=== PATIENT | male | born 1935 | race Caucasian/White ===

== ENCOUNTER 2020-11-06 16:53 | Emergency (ER) | payer MEDICARE, SELFPAY ==
[2020-11-06] VITALS (10 sets, daily range): BP systolic 134–191; BP diastolic 62–99; PULSE 18–88; RESP 16–24; TEMP 36.6–37.1; O2SAT 97–99; BMI 25.8
--- NOTE | 2020-11-06 17:36 | CTR_ITS ---
PROCEDURE INFORMATION: Exam: CT Head Without Contrast Exam date and time: 11/06/2020 5:38 PM Age: 85 years old Clinical indication: Pain; Headache not specified; Additional info: Migraine TECHNIQUE: Imaging protocol: Computed tomography of the head without contrast. Radiation optimization: All CT scans at this facility use at least one of these dose optimization techniques: automated exposure control; mA and/or kV adjustment per patient size (includes targeted exams where dose is matched to clinical indication); or iterative reconstruction. COMPARISON: CT head wo con* [id number] 02/02/2015 1:49 AM RADIATION DOSE METRICS: Total DLP (mGy-cm): 870.45 FINDINGS: Brain: There is moderate cerebral atrophy. No hemorrhage. Unremarkable white matter. No mass effect. Cerebral ventricles: No ventriculomegaly. Bones/joints: Unremarkable. No acute fracture. Paranasal sinuses: Diffuse opacification of the left sphenoid sinus with heterogeneous inspissated mucus. Extensive opacities of the left posterior ethmoid air cells. The maxillary sinuses are clear. The frontal sinuses are clear. The right sphenoid sinus is clear. Mastoid air cells: Mastoid air cells are clear. Auditory system: Small rounded radiopaque object in the right external auditory canal. Correlate for hearing aid device or foreign body. Orbital cavity: Bilateral lens replacements. Orbits are symmetric and unremarkable. Vasculature: Scattered intracranial atherosclerosis. Soft tissues: Unremarkable. CT/CT head wo con* [id number] IMPRESSION: Negative for acute intracranial abnormality. Radiation Dose CTDIVOL = (mGy): DLP = 870.45 (mGy-cm)
--- NOTE | 2020-11-06 17:40 | W.ED.HA ---
HPI - Headache General: Chief Complaint: Headache Stated Complaint: severe headaches/loss of sight L eye Time Seen by Provider: 11/06/20 17:36 History of Present Illness: HPI Narrative: Patient is a 85-year-old male who comes to the ED with severe headache for 2 weeks. Patient says 2 weeks ago he went to the site specialist at [facility] performed an eye exam and ever since then he has had on and off headaches. He says each day he will develop a severe headache that starts just above behind the left eye and radiates to the left side of his head to the back of the head. He rates his headache a 10 out of 10. He is complaining of photosensitivity and sound also makes headache worse. Patient took a pain pill around 3 PM today and has not helped him. Denies any nausea or vomiting. Denies any history of headaches or migraines. He says he rarely ever gets headaches, so this is very unusual for him. Associated symptoms: Reports photophobia; Deny chest pain, fever(s), nausea, rash or vomiting Review of Systems Const: Denies: fever(s), chills or fatigue Eyes: Reports: photophobia; Denies: change in vision or eye discomfort ENMT: Denies: throat pain, odynophagia, nasal discharge or nasal congestion Card: Denies: chest pain, palpitations, edema, swelling of feet/ankles, dyspnea on exertion or orthopnea Resp: Denies: dyspnea, productive cough or non-productive cough GI: Denies: abdominal pain, nausea, vomiting, diarrhea, constipation or hematochezia : Denies: flank pain, difficulty urinating, dysuria or hematuria Musc: Denies: neck pain, back pain or extremity swelling Skin/Breast: Denies: rash or new lesions Neuro: Reports: headache(s); Denies: numbness in extremities or weakness in extremities PFSH ED PFSH: Medical History Benign essential HTN CAD (coronary artery disease) Diabetes Hyperlipidemia Hypertension Type 2 diabetes mellitus Surgical History Hx of CABG Previous back surgery Family History Other CAD (coronary artery disease) Diabetes Stroke Social History Smoking and tobacco status: former smoker Alcohol intake: former Physical Exam Const: COMMON NORMALS: patient oriented x3 and alert GENERAL APPEARANCE: cooperative and in distress (pt is uncomfortable and appears to be in pain due to headache) HENMT: COMMON NORMALS: normocephalic HEAD & SCALP: normocephalic MOUTH: Normal oral and palatal mucosa present THROAT: posterior oropharynx normal and uvula midline Eye: COMMON NORMALS: Equal, round and reactive pupils present and EOMs intact bilaterally PUPIL: Yes Equal, round and reactive pupils present DIRECT OPHTHALMOSCOPY: Yes photophobia Neck/C-Spine: COMMON NORMALS: supple GENERAL: Yes normal visual inspection Resp: COMMON NORMALS: normal respiratory effort, No retractions, No use of accessory muscles and clear to auscultation bilaterally AUSCULTATION: clear to auscultation bilaterally Cardio: COMMON NORMALS: regular rate, regular rhythm, S1 normal heart sound present, S2 normal heart sound present, No gallops present (Cardio), No clicks present (Cardio), No murmurs present (Cardio) and Peripheral pulses 2+ throughout RATE: regular rate RHYTHM: regular rhythm HEART SOUNDS: S1 normal heart sound present and S2 normal heart sound present PERIPHERAL PULSES: Peripheral pulses 2+ throughout GI: COMMON NORMALS: Normal to inspection, nondistended, normoactive bowel sounds present, Soft to palpation, non-tender and no masses PALPATION: Yes Soft to palpation : COMMON NORMALS: Yes no CVA tenderness BLADDER/KIDNEY EXAM: Yes no CVA tenderness Back/Pelvis: COMMON NORMALS: no CVA tenderness Extremity: COMMON NORMALS: normal to inspection and no pedal edema Neuro: COMMON NORMALS: patient oriented x3, CN's II-XII intact bilaterally, moves all extremities, no focal motor deficits and no sensory deficits noted SENSORIUM/ORIENTATION: Yes alert MOTOR EXAM: 5/5 motor strength present throughout Skin: GENERAL SKIN EXAM: dry skin Course ED course: Patient was given some IV morphine and that slightly improved headache. Patient was then given half milligram of Dilaudid and headache symptoms still did not improve. Reevaluation(s): Reevaluation #1: After patient received IV fluids, Toradol, Decadron and Benadryl his migraine improved greatly. Patient says he is finally got some relief and is ready to go home and rest. He rates his migraine a 3 out of 10. Time: 21:54 Vital Signs: Vital signs: Vital Signs Temperature 98.7 F 11/06/20 22:25 Pulse Rate 18 L 11/06/20 22:25 Respiratory Rate 18 11/06/20 22:25 Blood Pressure 134/62 11/06/20 22:25 Pulse Oximetry 97 11/06/20 22:25 MDM - Headache MDM Narrative: Medical decision making narrative: Patient is an 85-year-old male comes to the ED with a headache. He has been having symptoms of an on and off severe headache for the past 2 weeks. 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 He has no history of migraines. He is complaining of photophobia and loud noises make headache worse as well. Patient is a nontoxic 85-year-old male that appears to be in pain due to headache neuro exam was normal. CBC and CMP were unremarkable. CT of head showed no acute findings. CTA of head showed no acute findings as well. Patient was given IV morphine first and headache only slightly improved. And then he was given a dose of 0.5 mg of Dilaudid and he had no improvement on headache. Once all CT imaging was performed and resulted and he had no acute findings I gave him a dose of Toradol, Decadron and Benadryl. after those meds, Patient had relief from migraine and he rated it a 3 out of 10 and he was ready to go home and rest. Patient was discharged home and told to follow-up with his PCP in 7 to 10 days for reevaluation. I told him to contact his site specialist as well to let him know about symptoms. Return to ED precautions given. Patient understood and agreed with plan. Lab Data: Attestation: I reviewed the patient's lab results. Labs: Lab Results 11/06/20 11/06/20 11/06/20 Range/Units 18:25 18:25 20:40 WBC 9.8 (4.0-10.0) 10^3/ uL RBC 5.10 (4.1-5.3) 10^6/u L Hgb 16.4 (11.7-16.6) g/dL Hct 47.7 (42.0-52.0) % MCV 93.5 (80-94) fL MCH 32.2 (28.0-34.0) pg MCHC 34.4 (30.0-36.0) g/dL RDW 13.7 (12.1-15.1) % Plt Count 153 (130-400) 10^3/c mm MPV 11.1 H (7.4-10.4) fL Neut % (Auto) 77.0 % Lymph % (Auto) 14.3 % [place] % (Auto) 6.7 % Eos % (Auto) 1.2 % Baso % (Auto) 0.5 % Neut # (Auto) 7.56 (1.8-7.7) 10^3/u L Lymph # (Auto) 1.4 (0.8-4.8) 10^3/u L [place] # (Auto) 0.7 (0.2-0.9) 10^3/u L Eos # (Auto) 0.1 (0.0-0.8) 10^3/u L Baso # (Auto) 0.1 (0.0-0.1) 10^3/u L Nucleated RBC % (a uto) 0 % Nucleated RBCs # 0.0 /100WBC Sodium 135 L (136-145) mmol/L Potassium 4.8 (3.5-5.1) mmol/L Chloride 98 (98-107) mmol/L Carbon Dioxide 23 (22-29) mmol/L Anion Gap 18.8 (5-19) BUN 22 (8-23) mg/dL Creatinine 1.3 H (0.7-1.2) mg/dL GFR Calculation Not Reportable Glucose 162 H (65-115) mg/dL POC Glucose 144 H (70-110) mg/dL Calculated Osmolal ity 287 (285-295) mOsm/k g Calcium 9.9 (8.5-10.5) mg/dL Total Bilirubin 0.7 (0.15-1.2) mg/dL AST 18 (0-40) U/L ALT 16 (0-41) U/L Alkaline Phosphata se 114 (40-130) IU/L Total Protein 7.0 (6.6-8.7) g/dL Albumin 4.5 (3.5-5.2) g/dL Globulin 2.5 (1.3-4.6) g/dL Imaging Data^: CT Head: Attestation: I personally reviewed and interpreted this imaging study as follows: Radiologist's impression: [address] [address] [address] Scan Report Signed Patient: Eddy Mendoza Sr. Unit #: [id number] : 1935 Age/Sex: 85 / M ADM Date: 11/06/20 Loc: ER Room/Bed: Attending Dr: Ordering Provider/Ordering MD: Ariel Ash Date of Service: 11/06/20 Procedure(s): CT head wo con* [id number] Accession Number(s): [id number] Report Number: [id number] PROCEDURE INFORMATION: Exam: CT Head Without Contrast Exam date and time: 11/06/2020 5:38 PM Age: 85 years old Clinical indication: Pain; Headache not specified; Additional info: Migraine TECHNIQUE: Imaging protocol: Computed tomography of the head without contrast. Radiation optimization: All CT scans at this facility use at least one of these dose optimization techniques: automated exposure control; mA and/or kV adjustment per patient size (includes targeted exams where dose is matched to clinical indication); or iterative reconstruction. COMPARISON: CT head wo con* [id number] 02/02/2015 1:49 AM RADIATION DOSE METRICS: Total DLP (mGy-cm): 870.45 FINDINGS: Brain: There is moderate cerebral atrophy. No hemorrhage. Unremarkable white matter. No mass effect. Cerebral ventricles: No ventriculomegaly. Bones/joints: Unremarkable. No acute fracture. Paranasal sinuses: Diffuse opacification of the left sphenoid sinus with heterogeneous inspissated mucus. Extensive opacities of the left posterior ethmoid air cells. The maxillary sinuses are clear. The frontal sinuses are clear. The right sphenoid sinus is clear. Mastoid air cells: Mastoid air cells are clear. Auditory system: Small rounded radiopaque object in the right external auditory canal. Correlate for hearing aid device or foreign body. Orbital cavity: Bilateral lens replacements. Orbits are symmetric and unremarkable. Vasculature: Scattered intracranial atherosclerosis. Soft tissues: Unremarkable. CT/CT head wo con* [id number] IMPRESSION: Negative for acute intracranial abnormality. Radiation Dose CTDIVOL = (mGy): DLP = 870.45 (mGy-cm) Dictated By: Uday Holley Signed By: Uday Holley Signed Date/Time: 11/06/201830 DD/ [address]: Attestation: I personally reviewed and interpreted this imaging study as follows: Radiologist's impression: [address] [place] [address] CT Scan Report Signed Patient: Eddy Mendoza Sr. Unit #: [id number] : 1935 Age/Sex: 85 / M ADM Date: 11/06/20 Loc: ER Room/Bed: Attending Dr: Ordering Provider/Ordering MD: Ariel Ash Date of Service: 11/06/20 Procedure(s): CT angio head [id number] Accession Number(s): [id number] Report Number: [id number] PROCEDURE INFORMATION: Exam: CT Angiography Head With Contrast, Arteriography Exam date and time: 11/06/2020 7:53 PM Age: 85 years old Clinical indication: Pain; Headache; Patient HX: C/O L sided BARNEY x 2 weeks w/o HX of migraines; Additional info: Severe migraine. TECHNIQUE: Imaging protocol: Computed tomography angiography of the head with contrast. Exam focused on the arteries. 3D rendering (Not supervised by radiologist): MIP and/or 3D reconstructed images were created by the technologist. Radiation optimization: All CT scans at this facility use at least one of these dose optimization techniques: automated exposure control; mA and/or kV adjustment per patient size (includes targeted exams where dose is matched to clinical indication); or iterative reconstruction. Contrast material: VISI 320; Contrast volume: 95 ml; Contrast route: INTRAVENOUS (IV); COMPARISON: CT head wo con* [id number] 11/06/2020 5:46 PM RADIATION DOSE METRICS: Total DLP (mGy-cm): 610.63 FINDINGS: ANTERIOR CIRCULATION: Right internal carotid artery: Unremarkable. Intracranial segment is patent with no significant stenosis. No aneurysm. Right middle cerebral artery: Unremarkable. No occlusion or significant stenosis. No aneurysm. Right anterior cerebral artery: Unremarkable. No occlusion or significant stenosis. No aneurysm. Left internal carotid artery: Unremarkable. Intracranial segment is patent with no significant stenosis. No aneurysm. Left middle cerebral artery: Unremarkable. No occlusion or significant stenosis. No aneurysm. Left anterior cerebral artery: Unremarkable. No occlusion or significant stenosis. No aneurysm. POSTERIOR CIRCULATION: Right vertebral artery: Unremarkable. No occlusion or significant stenosis. No aneurysm. Left vertebral artery: Unremarkable. No occlusion or significant stenosis. No aneurysm. Basilar artery: Unremarkable. No occlusion or significant stenosis. No aneurysm. Right posterior cerebral artery: Unremarkable. No occlusion or significant stenosis. No aneurysm. Left posterior cerebral artery: Unremarkable. No occlusion or significant stenosis. No aneurysm. Brain: No definite mass, mass effect, or midline shift. Cerebral ventricles: No ventriculomegaly. Paranasal sinuses: Complete opacification of the left sphenoid sinus with mixed attenuation mucus and fluid. Scattered left posterior ethmoid air cell opacification as well. Bones/joints: Unremarkable. No acute fracture. Soft tissues: Unremarkable. CT/CT angio head [id number] IMPRESSION: 1. No intracranial large vessel stenosis or occlusion. 2. Negative for intracranial aneurysm. 3. Nonspecific paranasal sinus disease. Radiation Dose CTDIVOL = (mGy): DLP = 610.63 (mGy-cm) Dictated By: Uday Holley Signed By: Uday Holley Signed Date/Time: 11/06/202023 DD/ 22 Discharge Plan Discharge Patient Disposition: Home Clinical Impression: Migraine Qualifiers: Migraine type: without aura Status migrainosus presence: without status migrainosus Intractability: not intractable Qualified Code(s): G43.009 - Migraine without aura, not intractable, without status migrainosus Condition: Stable Prescriptions: No Action lisinopril 40 mg tablet 40 mg PO DAILY RF: 0 simvastatin 80 mg tablet 80 mg PO DAILY RF: 0 ezetimibe 10 mg tablet 10 mg PO DAILY RF: 0 colchicine 0.6 mg tablet 0.6 mg PO DAILY RF: 0 nitroglycerin [Nitrostat] 0.4 mg tablet, sublingual 0.4 mg SUBLINGUAL Q5M PRNRF: 0 tramadol 50 mg tablet 50 mg PO BID PRNRF: 0 omeprazole 40 mg capsule,delayed release(DR/EC) 40 mg PO DAILY RF: 0 finasteride 5 mg tablet 5 mg PO DAILY RF: 0 metoprolol succinate 50 mg tablet extended release 24 hr 50 mg PO DAILY Qty: 90 RF: 0 Discharge Orders: Discharge ED (Routine); Ordered 11/06/20 Ordered By: Ariel Ash Referrals: Mitul Elizabeth [Primary Care Provider] - Discharge Diet: Regular Discharge Activity: Resume usual activity Patient Instructions: Migraine Headache (ED) Activity Restrictions/Additional Instructions: Follow-up with medical provider as directed. Contact the site specialist tomorrow morning to discuss patient's headache symptoms after exam 2 weeks ago. Continue taking all home medications as previously prescribed. Return to the ER or your medical provider if condition worsens. Please read and understand discharge instructions. Thank you for choosing [facility] for your healthcare needs today. Please realize this is an emergency room and that we are providing you with a medical screening exam and this may not be complete and all inclusive of all the testing and or work up that you may need to determine your ailment or severity of your illness. It is very important that you follow up as instructed or that you return to the Emergency Department should you have concerns or if your condition changes or worsens in any way. Coding Level of Care Code ED [employer] Pe[employer] Operator for Taj Ravi Exam Comprehensive
[2020-11-06] MEDS: morphine 4 mg/mL SDV 1 mL IVP (18:32)
[2020-11-06] MEDS: ondansetron 2 mg/ML SDV 2 mL 4 MG IVP (18:33)
--- NOTE | 2020-11-06 19:01 | CTR_ITS ---
PROCEDURE INFORMATION: Exam: CT Angiography Head With Contrast, Arteriography Exam date and time: 11/06/2020 7:53 PM Age: 85 years old Clinical indication: Pain; Headache; Patient HX: C/O L sided BARNEY x 2 weeks w/o HX of migraines; Additional info: Severe migraine. TECHNIQUE: Imaging protocol: Computed tomography angiography of the head with contrast. Exam focused on the arteries. 3D rendering (Not supervised by radiologist): MIP and/or 3D reconstructed images were created by the technologist. Radiation optimization: All CT scans at this facility use at least one of these dose optimization techniques: automated exposure control; mA and/or kV adjustment per patient size (includes targeted exams where dose is matched to clinical indication); or iterative reconstruction. Contrast material: VISI 320; Contrast volume: 95 ml; Contrast route: INTRAVENOUS (IV); COMPARISON: CT head wo con* [id number] 11/06/2020 5:46 PM RADIATION DOSE METRICS: Total DLP (mGy-cm): 610.63 FINDINGS: ANTERIOR CIRCULATION: Right internal carotid artery: Unremarkable. Intracranial segment is patent with no significant stenosis. No aneurysm. Right middle cerebral artery: Unremarkable. No occlusion or significant stenosis. No aneurysm. Right anterior cerebral artery: Unremarkable. No occlusion or significant stenosis. No aneurysm. Left internal carotid artery: Unremarkable. Intracranial segment is patent with no significant stenosis. No aneurysm. Left middle cerebral artery: Unremarkable. No occlusion or significant stenosis. No aneurysm. Left anterior cerebral artery: Unremarkable. No occlusion or significant stenosis. No aneurysm. POSTERIOR CIRCULATION: Right vertebral artery: Unremarkable. No occlusion or significant stenosis. No aneurysm. Left vertebral artery: Unremarkable. No occlusion or significant stenosis. No aneurysm. Basilar artery: Unremarkable. No occlusion or significant stenosis. No aneurysm. Right posterior cerebral artery: Unremarkable. No occlusion or significant stenosis. No aneurysm. Left posterior cerebral artery: Unremarkable. No occlusion or significant stenosis. No aneurysm. Brain: No definite mass, mass effect, or midline shift. Cerebral ventricles: No ventriculomegaly. Paranasal sinuses: Complete opacification of the left sphenoid sinus with mixed attenuation mucus and fluid. Scattered left posterior ethmoid air cell opacification as well. Bones/joints: Unremarkable. No acute fracture. Soft tissues: Unremarkable. CT/CT angio head [id number] IMPRESSION: 1. No intracranial large vessel stenosis or occlusion. 2. Negative for intracranial aneurysm. 3. Nonspecific paranasal sinus disease. Radiation Dose CTDIVOL = (mGy): DLP = 610.63 (mGy-cm)
[2020-11-06 19:11] LABS: Basophils # 0.1 10^3/uL (0.0-0.1); Basophils % 0.5 %; Eosinophils # 0.1 10^3/uL (0.0-0.8); Eosinophils % 1.2 %; Hematocrit 47.7 % (42.0-52.0); Hemoglobin 16.4 g/dL (11.7-16.6); Lymphocytes # 1.4 10^3/uL (0.8-4.8); Lymphocytes % 14.3 %; Mean Corpuscular HGB Conc 34.4 g/dL (30.0-36.0); Mean Corpuscular Hemoglobin 32.2 pg (28.0-34.0); Mean Corpuscular Volume 93.5 fL (80-94); Mean Platelet Volume 11.1 fL (7.4-10.4); Monocytes # 0.7 10^3/uL (0.2-0.9); Monocytes % 6.7 %; Neutrophils # 7.56 10^3/uL (1.8-7.7); Nucleated Red Blood Cells % 0 %; Platelet Count 153 10^3/cmm (130-400); Red Cell Distribution Width 13.7 % (12.1-15.1); White Blood Count 9.8 10^3/uL (4.0-10.0)
[2020-11-06 19:20] LABS: Alanine Aminotransferase 16 U/L (0-41); Albumin Level 4.5 g/dL (3.5-5.2); Alkaline Phosphatase 114 IU/L (40-130); Anion Gap 18.8 (5-19); Aspartate Amino Transferase 18 U/L (0-40); Blood Urea Nitrogen 22 mg/dL (8-23); Calcium 9.9 mg/dL (8.5-10.5); Carbon Dioxide 23 mmol/L (22-29); Chloride 98 mmol/L (98-107); Globulin 2.5 g/dL (1.3-4.6); Glucose 162 mg/dL (65-115); Osmolality Calculated 287 mOsm/kg (285-295); Potassium 4.8 mmol/L (3.5-5.1); Sodium 135 mmol/L (136-145); Total Bilirubin 0.7 mg/dL (0.15-1.2)
[2020-11-06] MEDS: HYDROmorphone 1 mg/mL INJ 1 mL 0.5 MG IVP (20:02)
[2020-11-06] MEDS: iodixanol 320 mg/mL 100mL Btl IV (20:17)
[2020-11-06 20:43] LABS: Glucose Point of Care 144 mg/dL (70-110)
[2020-11-06] MEDS: dexamethasone 4 mg/mL INJ 10 MG IVP (21:30)
[2020-11-06] MEDS: ketorolac 30 mg/mL INJ IVP (21:31)
[2020-11-06] MEDS: diphenhydrAMINE 50 mg/mL SDV 1mL 25 MG IVP (21:32)
[2020-11-06] MEDS: sodium chloride 0.9% 500 ML 999 ML IV (21:38)
== END 2020-11-06 22:40 | disposition home or self-care (01) ==
PROVIDERS: Emergency Provider Physician Assistant; PCP Family Medicine
DX: G43.009 Migraine without aura, not intractable, without status migrainosus (principal); I10 Essential (primary) hypertension; I25.10 Atherosclerotic heart disease of native coronary artery without angina pectoris; E11.9 Type 2 diabetes mellitus without complications; E78.5 Hyperlipidemia, unspecified; Z95.1 Presence of aortocoronary bypass graft; Z87.891 Personal history of nicotine dependence
CPT/HCPCS: 36416; 70450; 70496; 80053; 82962; 85025; 96374; 96375; 99284; J1100; J1170; J1200; J1885; J2270; J2405; J7040; Q9967

== ENCOUNTER → 2021-10-23 11:42 | Outpatient (BNVA) | payer MEDICARE, SELFPAY | PROVIDERS: PCP Family Medicine; Visit Provider Internal Medicine Cardiovascular Disease | DX: I25.10 Atherosclerotic heart disease of native coronary artery without angina pectoris (principal); I10 Essential (primary) hypertension; E11.65 Type 2 diabetes mellitus with hyperglycemia; E78.2 Mixed hyperlipidemia; Z87.891 Personal history of nicotine dependence; Z79.84 Long term (current) use of oral hypoglycemic drugs | CPT/HCPCS: 99214 ==

== ENCOUNTER → 2022-05-07 10:39 | Outpatient (BNVA) | payer MEDICARE, SELFPAY | PROVIDERS: PCP Family Medicine; Visit Provider Internal Medicine Cardiovascular Disease | DX: I25.10 Atherosclerotic heart disease of native coronary artery without angina pectoris (principal); I10 Essential (primary) hypertension; E11.65 Type 2 diabetes mellitus with hyperglycemia; Z79.84 Long term (current) use of oral hypoglycemic drugs; E78.2 Mixed hyperlipidemia; Z87.891 Personal history of nicotine dependence; Z95.1 Presence of aortocoronary bypass graft | CPT/HCPCS: 99214 ==

== ENCOUNTER 2024-01-22 11:32 | Outpatient (CLI) | payer OTHER, SELFPAY ==
--- NOTE | 2024-01-22 11:39 | MR_ITS ---
WS: [id number] MRI LUMBAR SPINE NONCONTRAST TECHNIQUE: Sagittal T1, T2 and STIR imaging. Axial T1 and T2 imaging. CLINICAL INFORMATION: LOW BACK PAIN COMPARISON: None. FINDINGS: Mild lumbar curve. No acute compression. Disc narrowing throughout the lumbar spine. Remote laminecto my defects L3-L4 and L4-L5. L1-L2: Mild disc bulging. Narrowing of the RIGHT subarticular recess. Mild facet arthropathy. Mild RI GHT foraminal narrowing. L2-L3: Mild disc bulge with mild central canal stenosis. Moderate facet arthropathy. Mild LEFT forami nal narrowing. L3-L4: Laminectomy defects. Mild RIGHT greater than LEFT foraminal narrowing. Canal has been decompre ssed. Moderate facet arthropathy. L4-L5: Remote and complete laminectomy defects. Severe narrowing of the thecal sac. Mild bilateral fo raminal narrowing RIGHT greater than LEFT. Moderate facet arthropathy ligamentum flavum hypertrophy. L5-S1: Mild annular bulging. Slight effacement of the ventral thecal sac. Mild facet arthropathy. Spi nal canal and foramen are patent. Visualized pelvic bony structures: Normal. Paravertebral soft tissues: Normal. RIGHT renal cysts. Atrophic LEFT kidney. Small LEFT renal cyst. Markedly enlarged prostate partially evaluated measuring 7 x 6 cm. Recommend correlation PSA. MR/MR lumbar spine wo con* [id number] IMPRESSION: 1. 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 2. Mild central canal stenosis L2-3. Spinal canal decompression L3-4. 3. Moderate facet arthropathy L2-L3 L3-L4 and L4-L5. 4. Multilevel bony foraminal narrowing described above. 5. Markedly enlarged nodular prostate partially evaluated measuring 7 x 6 cm s uspicious for neoplasia. Recommend correlation PSA.
== END 2024-01-22 11:33 | disposition home or self-care (01) ==
LOC: RAD 11:33
PROVIDERS: PCP Family Medicine; Visit Provider Nurse Practitioner
DX: M51.37 Other intervertebral disc degeneration, lumbosacral region (principal); M47.897 Other spondylosis, lumbosacral region; M48.061 Spinal stenosis, lumbar region without neurogenic claudication; N40.0 Benign prostatic hyperplasia without lower urinary tract symptoms; M47.816 Spondylosis without myelopathy or radiculopathy, lumbar region
CPT/HCPCS: 72148